=== PATIENT | male | born 1960 | race African-American/Black ===

== ENCOUNTER 2022-12-18 22:31 | Emergency (ER) | payer BC ==
[~2022-12-18] VITALS: Ht 198.1 cm; Wt 84.8 kg
[2022-12-18 22:36] VITALS: BP_SYST 156
[2022-12-19] MEDS ORDERED: ASPIRIN 325 MG TABLET PO ONE
[2022-12-19 00:31] LABS: BASOPHILS % (AUTO) 0.4 % (0.0-2.0); EOSINOPHILS # (AUTO) 0.4 K/uL (0.0-0.4); EOSINOPHILS % (AUTO) 6.4 % (0.0-4.0); HEMATOCRIT 40.8 % (36-54); HEMOGLOBIN 13.7 g/dL (14.0-18.0); LYMPHOCYTES # (AUTO) 1.9 K/uL (1.0-5.5); LYMPHOCYTES % (AUTO) 27.4 % (20.5-51.5); MEAN CORPUSCULAR HEMOGLOBIN 30 pg (27-31); MEAN CORPUSCULAR HGB CONC 34 % (32-36); MEAN CORPUSCULAR VOLUME 89 fL (79.0-98.0); MONOCYTES # (AUTO) 0.8 K/uL (0.0-1.0); MONOCYTES % (AUTO) 11.5 % (1.7-9.3); NEUTROPHILS # (AUTO) 3.7 K/uL (1.8-7.7); NEUTROPHILS % (AUTO) 54.3 % (40.0-70.0); PLATELET COUNT (AUTO) 199 K/uL (130-430); RED BLOOD CELL COUNT(AUTO) 4.58 MIL/uL (4.2-6.2); RED CELL DISTRIBUTION WIDTH 14.9 % (9.0-15.0); WHITE BLOOD COUNT (AUTO) 6.8 K/uL (4.8-10.8)
[2022-12-19 00:39] LABS: ANION GAP 4 (5-15); CALCIUM 8.2 mg/dL (8.4-11.0); CHLORIDE 103 mmol/L (98-107); CREATININE 1.41 mg/dL (0.55-1.30); GFR AFRICAN AMERICAN 66 mL/min (>90); GLUCOSE 102 mg/dL (70-99); UREA NITROGEN, BLOOD 20 mg/dL (8-21)
[2022-12-19 00:46] LABS: ALANINE AMINOTRANSFERASE 34 U/L (12-78); ALBUMIN 3.3 g/dL (3.4-4.8); ASPARTATE AMINOTRANSFERASE 19 U/L (10-37); TOTAL BILIRUBIN 0.7 mg/dL (0.0-1.0)
[2022-12-19 02:27] VITALS: BP_SYST 120
[2022-12-19] MEDS ORDERED: ASPI-1457 PO (02:38)
[2022-12-19] MEDS ORDERED: PRED20TA PO (02:38)
[2022-12-19] MEDS ORDERED: NITSL SL (02:38)
== END 2022-12-19 02:27 | disposition home or self-care (01) ==
LOC: SED 22:31
DX: R07.2 Precordial pain (principal); Z79.899 Other long term (current) drug therapy
CPT/HCPCS: 36415; 71045; 80053; 83880; 84484; 85025; 93005; 99285